=== PATIENT | male | born 1995 | race Caucasian/White ===

== ENCOUNTER 2023-10-17 13:11 | Emergency (ER) | payer OTHER, SELFPAY ==
--- NOTE | ~2023-10-17 | XR_ITS ---
EXAMINATION: XR chest 2V DATE: 10/17/2023 13:49 INDICATION: Chest pain/pressure and dyspnea TECHNIQUE: PA and lateral views of the chest were obtained. COMPARISON: None FINDINGS: The lungs are clear with no focal airspace opacities, pulmonary edema, pleural effusion or pneumothor ax. The cardiomediastinal silhouette is normal. Mild anterior wedging of a couple lower thoracic vert ebral bodies. IMPRESSION: 1. No acute cardiopulmonary disease. Reviewed, dictated and finalized at location A. AP PLACER
--- NOTE | 2023-10-17 13:12 | ECG_ITS ---
Measurements Intervals [place] Rate: 80 P: 16 IA: 143 QRS: 3 QRSD: 87 T: -6 QT: 355 QTc: 412 Interpretive Statements SINUS RHYTHM NO PREVIOUS ECG AVAILABLE FOR COMPARISON Electronically Signed On 10-17-2023 15:04:08 TOP SCREW by Luis Hurley M.D.
[2023-10-17 13:21] VITALS: BP 152/100; PULSE 79; RESP 16; TEMP 36.6; O2SAT 100
[2023-10-17 13:40] LABS: Basophils Percent Auto 0.4 % (0.2-1.2); Eosinophils Absolute Auto 0.1 K/mm3 (0-0.3); Hematocrit 44.7 % (42.0-52.0); Hemoglobin 15.7 g/dL (14.0-18.0); Lymphocytes Absolute Auto 2.98 K/mm3 (0.9-3.2); Lymphocytes Percent Auto 44.1 % (18.3-44.2); Mean Corpuscular HGB Conc 35.1 g/dl (32-36); Mean Corpuscular Hemoglobin 33.3 pg (26-34); Mean Corpuscular Volume 94.7 fl (80-100); Mean Platelet Volume 9.7 fl (7.4-10.4); Monocytes Absolute Auto 0.7 K/mm3 (0.1-0.6); Monocytes Percent Auto 9.6 % (2.6-8.5); Neutrophils Percent Auto 44.9 % (45.5-73.1); Platelet Count Result 223 k/mm3 (150-375); Red Blood Count 4.72 M/mm3 (4.6-6.20); Red Cell Distribution Width 11.3 % (11.5-14.5); White Blood Count 6.8 K/mm3 (4.5-10.0)
[2023-10-17 13:50] LABS: INR 0.9; Partial Thromboplastin Time 26.7 SECONDS (22.3-36.8); Prothrombin Time 12.9 Seconds (11.1-14.7)
[2023-10-17 14:04] LABS: Troponin I < 0.012 ng/mL (0.000-0.034)
[2023-10-17 14:13] LABS: Alanine Aminotransferase 115 U/L (6-50); Albumin Level 4.9 g/dL (3.5-5.1); Alkaline Phosphatase 62 U/L (38-126); Anion Gap 10 mmol/L (8-16); Aspartate Amino Transferase 118 U/L (17-59); Bilirubin,Total 0.7 mg/dL (0.2-1.3); Blood Urea Nitrogen 12 mg/dL (9-20); Calcium 9.7 mg/dL (8.4-10.2); Carbon Dioxide 28 mmol/L (22-30); Chloride 103 mmol/L (98-107); Estimated CRCL calculation 118 ml/min; Estimated Glomerular Filt Rate > 60; Glucose 131 mg/dL (65-110); Lipase 113 U/L (23-300); Potassium 3.8 mmol/L (3.4-5.0); Sodium 141 mmol/L (137-145)
[2023-10-17 16:15] LABS: Influenza A QL RT-PCR Negative (Negative); Influenza B QL RT-PCR Negative (Negative); SARS-CoV-2 RNA PCR Negative (Negative)
--- NOTE | 2023-10-17 16:20 | ECG_ITS ---
Measurements Intervals [place] Rate: 80 P: 44 MI: 144 QRS: 55 QRSD: 89 T: 51 QT: 361 QTc: 417 Interpretive Statements SINUS RHYTHM NORMAL ELECTROCARDIOGRAM COMPARED TO ECG 10/17/2023 13:18:06 NO SIGNIFICANT CHANGES Electronically Signed On 10-18-2023 7:07:20 CALL CENTER SPECIALIST by Kimani Serrano M.D.
[2023-10-17 16:26] VITALS: BP 156/92; PULSE 80; RESP 14; O2SAT 99
[2023-10-17] MEDS: SODIUM CHLORIDE 0.9% IV 1,000 ML 999 ML IV CONT (16:29)
--- NOTE | 2023-10-17 16:56 | ED.CHESTPAIN ---
HPI - Chest Pain General Chief Complaint: Chest Pain Stated Complaint: chest pain Time Seen by Provider: 10/17/23 15:22 History of Present Illness HPI narrative: Patient is a 28-year-old male who presents to the emergency department this afternoon complaining of left-sided chest pain and palpitations. Patient states the symptoms started while he was at work and his boss finally told him to come in for further evaluation. Patient admits that he has been in taking a lot of caffeine and things of this could be attributing to his palpitations. Patient does appear to be anxious and states that initially he did Google his symptoms he and one of the 1st thing that came up was a panic attack. Patient denies any shortness of breath, nausea, vomiting, abdominal pain, dysuria, hematuria, constipation, diarrhea, melena, hematochezia, fevers or chills. Patient also denies any headaches, dizziness, lightheadedness, blurry visions, focal weakness, numbness and or tingling. There are no other modifying, alleviating, or precipitating factors at this time. Related Data Home Medications Medication Instructions Recorded Confirmed No Home Medications 03/13/22 03/13/22 Allergies Allergy/AdvReac Type Severity Reaction Status Date / Time PCN Allergy Intermediate RASH Uncoded 03/02/22 14:19 Review of Systems Review of Systems: All systems are reviewed and are negative unless stated otherwise in the HPI. [facility] Past Medical History Medical History Anxiety Aortic stenosis Family History Family History Mother Hypertension Social History Social History Social History: Single Smoking status: Never smoker Second hand tobacco smoke exposure: No Alcohol intake: current Drinks per week: 24 Substance use: never Substance use type: does not use Living arrangements: alone Occupation/Education: occupation Gender identity (if verbalized by the patient): Male Exam Narrative: General: Alert, awake, afebrile, in no acute distress, anxious. HEENT: PERRL, no rhinorrhea, no post nasal drip, oropharynx clear. Neck: Trachea midline, no JVD, no lymphadenopathy. Cardiovascular: Regular rate and rhythm, no murmurs, rubs or gallops, no peripheral edema. Respiratory: Clear to auscultation bilaterally, no tachypnea, no wheezing, no rhonchi, no rubs, no respiratory distress. Abdomen: Soft, nontender, nondistended, no rebound, no guarding, no peritoneal signs. Musculoskeletal: No joint swelling or deformity, normal muscle tone. Skin: No rashes or petechia, no signs of infection. Psychiatric: Alert and oriented, normal behavior and judgment for situation. Neurological: Alert and oriented to person, place, and time. Follows all commands. No focal deficits, speech is clear and fluent. Course Vital Signs Vital signs: Vital Signs Temperature 97.8 F 10/17/23 13:21 Pulse Rate 79 10/17/23 13:21 Respiratory Rate 16 10/17/23 13:21 Blood Pressure 152/100 H 10/17/23 13:21 Pulse Oximetry 100 10/17/23 13:21 Oxygen Delivery Room Air 10/17/23 13:21 Temperature 97.8 F 10/17/23 13:21 Pulse Rate 80 10/17/23 16:26 Respiratory Rate 14 10/17/23 16:26 Blood Pressure 156/92 H 10/17/23 16:26 Pulse Oximetry 99 10/17/23 16:26 Oxygen Delivery Room Air 10/17/23 13:21 MDM - Chest Pain MDM Narrative Medical decision making narrative: The patient was evaluated by myself in the emergency department. History is obtained from patient who is an independent historian and physical exam was performed. External medical records were reviewed at this time. IV was established and pertinent tests were ordered. Patient was administered a 1 L fluid bolus with normal saline. EKG was obtained which revealed sinus rhythm at a rate of 80 beats per minute.
[2023-10-17 16:57] LABS: Troponin I < 0.012 ng/mL (0.000-0.034)
== END 2023-10-17 17:53 | disposition home or self-care (01) ==
PROVIDERS: Student in an Organized Health Care Education/Training Program; Emergency Provider Emergency Medicine; PCP Emergency Medicine
DX: R07.9 Chest pain, unspecified (principal); R00.2 Palpitations; F41.9 Anxiety disorder, unspecified; Z20.822 Contact with and (suspected) exposure to COVID-19; I35.0 Nonrheumatic aortic (valve) stenosis
CPT/HCPCS: 36415; 71046; 80053; 83690; 84484; 85025; 85610; 85730; 87636; 93005; 96360; 99284; J7030

== ENCOUNTER 2023-10-30 08:18 | Outpatient (CLI) | payer OTHER, SELFPAY ==
--- NOTE | ~2023-10-30 | US_ITS ---
EXAMINATION: US abdomen complete DATE: 10/30/2023 08:55 INDICATION: Hepatic steatosis, elevated liver function tests TECHNIQUE: Multiple grayscale and Doppler ultrasound images of the abdomen were obtained. COMPARISON: None available FINDINGS: Bowel gas obscures visualization of the pancreas. The visualized portions of the pancreas a re unremarkable. The liver demonstrates increased echogenicity, heterogenous echotexture, and decreas ed through transmission. There is an approximately 6.0 x 4.8 x 5.5 cm hypoechoic area of the the left hepatic lobe. No surface nodularity. Normal hepatopetal flow in the main portal vein. The gallbladde r is normal with no abnormal wall thickening, pericholecystic fluid or stones. The normal common bile duct measures 4 mm. There was no sonographic Segovia sign. The visualized portions of the aorta and i nferior vena cava are normal. The spleen is normal in appearance and measures 11.6 cm. The right kidney measures 10.8 x 4.5 x 5.2 c m. The left kidney measures 11.0 x 5.8 x 5.3 cm. The kidneys demonstrate normal parenchymal echogenic ity. There is no hydronephrosis. IMPRESSION: 1. Diffuse hepatic steatosis. 2. 6.0 cm hypoechoic area of the left hepatic lobe which could reflect focal fatty sparing or liver m ass. Further evaluation by MRI without and with contrast is recommended. Reviewed, dictated and finalized at location B. REGULATORY AFFAIRS SPECIALIST IMPRESSION: 1. Diffuse hepatic steatosis. 2. 6.0 cm hypoechoic area of the left hepatic lobe which could reflect focal fa tty sparing or liver mass. Further evaluation by MRI without and with contrast is recommended.
== END 2023-10-30 08:19 ==
PROVIDERS: PCP Emergency Medicine; Visit Provider Emergency Medicine
DX: K76.0 Fatty (change of) liver, not elsewhere classified (principal); R94.5 Abnormal results of liver function studies
CPT/HCPCS: 76700

== ENCOUNTER 2023-11-18 12:31 | Outpatient (CLI) | payer OTHER, SELFPAY ==
--- NOTE | ~2023-11-18 | MR_ITS ---
EXAMINATION: MR abdomen wo/w con DATE: 11/18/2023 13:40 INDICATION: Liver mass TECHNIQUE: Magnetic resonance imaging (MRI) of the abdomen was performed without and with 19 mL Multi jaskaran intravenous contrast. Sequences included coronal T2-weighted SS-FSE, coronal and axial FS 2D-F IESTA, axial STIR FSE, axial T2-weighted SS-FSE, axial T2-weighted FS SS-FSE, axial diffusion-weighte d SE, axial dual-echo T1-weighted FSPGR, and axial and coronal T1-weighted LAVA. Postcontrast axial T 1-weighted LAVA images were obtained in a time course. Postcontrast coronal T1-weighted LAVA images w ere obtained. COMPARISON: Ultrasound dated 10/30/2023 FINDINGS: Heart size is normal. No pericardial or pleural effusion. There is diffuse hepatic steatosis with pro minent signal dropout on opposed phase imaging. There is a an approximately 5 cm geographic region of focal fatty sparing at the posterior aspect of the lateral segment of the left hepatic lobe. No othe r hepatic lesions identified. Gallbladder, spleen, pancreas, bilateral adrenal glands and kidneys are normal. Visualized portion of the bowels are unremarkable with no obstruction. No pathologically enl arged abdominal or upper pelvic lymphadenopathy. Bones are unremarkable with normal marrow signal thr oughout. IMPRESSION: 1. Diffuse hepatic steatosis with 5 cm region of focal fatty sparing at the lateral segment of the le ft hepatic lobe which corresponds to the region of decreased echogenicity on the prior ultrasound. Reviewed, dictated and finalized at location B. IMPRESSION: 1. Diffuse hepatic steatosis with 5 cm region of focal fatty sparing at the lat eral segment of the left hepatic lobe which corresponds to the region of decrea sed echogenicity on the prior ultrasound.
== END 2023-11-18 12:32 | disposition home or self-care (01) ==
LOC: ANHIMG 12:36
PROVIDERS: PCP Emergency Medicine; Visit Provider Emergency Medicine
DX: K76.0 Fatty (change of) liver, not elsewhere classified (principal)
CPT/HCPCS: 74183; A9577

== ENCOUNTER 2024-07-07 10:47 | Outpatient (CLI) | payer BC, SELFPAY ==
--- NOTE | 2024-07-07 10:49 | ECHO_ITS ---
Patient Info Name: Gino Ham Age: 29 years : 1995 Gender: Male Ht: 68 in Wt: 205 lbs BSA: 2.14 m2 HR: 82 bpm BP: 154 / 96 mmHg Technical Quality: Good Exam Date: 07/07/2024 11:29 AM Exam Location: Echo Lab Patient Status: Outpatient Admit Date: 07/07/2024 Staff Ordering Physician: Edgar Munoz DO Brick Cleaner: Neda Marin RDCS Attending Provider: Edgar Munoz DO Referring Physician: Alexander FAIR; Exam Type: CA echo doppler color flow Study Info Indications I35.0 - Nonrheumatic aortic (valve) stenosis Complete two-dimensional, color flow and Doppler transthoracic echocardiogram is performed. Strain analysis performed. Summary 1. Complete two-dimensional, color flow and Doppler transthoracic echocardiogram is performed. 2. Left ventricular chamber dimension is normal. 3. Left ventricular systolic function is normal, estimated at 60-65%. 4. The left ventricular diastolic function is normal. 5. E/e' 8 is minimally elevated. 6. Global longitudinal strain is mildly abnormal at -16.3%. 7. There is mild aortic valve sclerosis. 8. There is trace tricuspid valve regurgitation. 9. No pulmonary hypertension, estimated pulmonary arterial systolic pressure is 36 mmHg. 10. There is trace pulmonic regurgitation. Left Ventricle E/e' 8 is minimally elevated. Global longitudinal strain is mildly abnormal at -16.3%. Left ventricular chamber dimension is normal. Left ventricular systolic function is normal, estimated at 60-65%. The left ventricular diastolic function is normal. Right Ventricle Right ventricular chamber dimension is normal. Right ventricular systolic function is normal. Left Atria Left atrial chamber dimension is normal. Right Atria Right atrial chamber dimension is normal. Aortic Valve The aortic valve is trileaflet. There is mild aortic valve sclerosis. There is no aortic valve stenosis. There is no aortic valve regurgitation. Pulmonic Valve There is trace pulmonic regurgitation. Mitral Valve There is no mitral valve stenosis. There is no mitral valve regurgitation. Tricuspid Valve There is trace tricuspid valve regurgitation. No pulmonary hypertension, estimated pulmonary arterial systolic pressure is 36 mmHg. Pericardium/Pleural There is no pericardial effusion. Inferior Vena Cava Normal inferior vena cava with >50% collapse upon inspiration consistent with normal right atrial pressure, 5 mmHg. Aorta The aortic root size at the sinus of Valsalva is normal. Left Ventricular Outflow Tract Name Value Normal LVOT 2D LVOT Diameter 2.1 cm LVOT Doppler LVOT Peak Gradient 4 mmHg LVOT Mean Gradient 2 mmHg LVOT VTI 23 cm LVOT VTI/AV VTI Ratio 0.4 LVOT Stroke Volume 80 ml LVOT CO 5.2 l/min LVOT CI 2.4 l/min/m2 Pulmonic Valve Name Value Normal RVOT Doppler RVOT Peak Gradient 2 mmHg PV Doppler PV Peak Gradient 7 mmHg Mitral Valve Name Value Normal MV Doppler MV Decel [place] 461 cm/s2 MV PHT 46 ms MV Area (PHT) 4.8 cm2 4.0-5.0 MV Diastolic Function MV E Peak Velocity 73 cm/s MV A Peak Velocity 71 cm/s MV E/A 1.0 MV Decel Time 158 ms Tricuspid Valve Name Value Normal TV Regurgitation Doppler TR Peak Velocity 278 cm/s TR Peak Gradient 31 mmHg Estimated PAP/RSVP RA Pressure 5 mmHg <=5 PA Systolic Pressure 36 mmHg <36 RV Systolic Pressure 36 mmHg <36 Aorta Name Value Normal Ascending Aorta Ao Root Diameter (MM) 3.7 cm Ao Root Diam Index (MM) 1.7 cm/m2 Aortic Valve Name Value Normal AV Doppler AV Peak Velocity 310 cm/s AV Peak Gradient 36 mmHg AV Mean Gradient 21 mmHg AV VTI 60 cm AV Area (Cont Eq VTI) 1.3 cm2 >=3.0 AV Area (Cont Eq Adam) 1.1 cm2 AV Regurgitation 2D LVOT Area 3.5 cm2 Ventricles Name Value Normal LV Dimensions 2D/MM IVS Diastolic Thickness (2D) 0.7 cm 0.6-1.0 IVS Diastole Thickness (MM) 0.9 cm 0.6-1.0 LVID Diastole (2D) 4.3 cm 4.2-5.8 LVID Diastole (MM) 5.1 cm 4.2-5.8 LVIW Diastolic Thickness (2D) 1.0 cm 0.6-1.0 LVIW Diastolic Thickness (MM) 0.9 cm 0.6-1.0 LVID Systole (2D) 2.8 cm 2.5-4.0 LVID Systole (MM) 3.3 cm 2.5-4.0 LVOT Diameter 2.1 cm LV Mass (2D Cubed) 106.76 g 88.00-224.00 LV Mass Index (2D Cubed) 50 g/m2 49-115 Relative Wall Thickness (2D) 0.44 LV Mass (MM Cubed) 163.82 g 88.00-224.00 LV Mass Index (MM Cubed) 77 g/m2 49-115 Relative Wall Thickness (MM) 0.36 LV Fractional Shortening/Ejection Fraction 2D/MM LV Fractional Shortening (2D) 35 % 25-43 LV Fractional Shortening (MM) 35 % 25-43 LV EF (MM Teicholz) 64 % 52-72 LV EF (2D Teicholz) 65 % 52-72 LV Diastolic Volume (4C MOD) 112 ml LV EF (4C MOD) 48 % LV Diastolic Volume (2C MOD) 136 ml LV EF (2C MOD) 63 % LV Diastolic Volume (BP MOD) 124 ml 62-150 LV Diastolic Volume Index (BP MOD) 58 ml/m2 34-74 LV Systolic Volume (BP MOD) 56 ml 21-61 LV Systolic Volume Index (BP MOD) 26 ml/m2 11-31 LV EF (BP MOD) 55 % 52-72 LV Diastolic Length (4C) 8.9 cm LV Systolic Length (4C) 7.9 cm LV Stroke Volume (4C MOD) 53 ml Atria Name Value Normal LA Dimensions LA Dimension (MM) 3.0 cm 3.0-4.1 LA Volume (4C A-L) 31 ml LA Volume (BP A-L) 38 ml RA Dimensions RA Area (4C) 13.7 cm2 <=18.0 EchoPAC Name Value Normal AutoEF LVCO_BiP_Q (Rtuc1XMH) 5.2 l/min LVEF_BiP_Q (Zjhe0UHG) 55 % LVSV_BiP_Q (Rgoz8CIN) 64 ml LVVED_BiP_Q (Ckky0JWR) 116 ml LVVES_BiP_Q (Hgat7RQT) 52 ml HR_4Ch_Q (Mgiy6PCL) 79 bpm LVCO_4Ch_Q (Gkgd8LFX) 3.8 l/min LVEF_4Ch_Q (Nyuv5QFL) 46 % LVLd_4Ch_Q (Iccn2FJM) 8.8 cm LVLs_4Ch_Q (Tzqu2HOR) 7.5 cm LVSV_4Ch_Q (Ivde2SPC) 49 ml LVVED_4Ch_Q (Yvks2ACW) 107 ml LVVES_4Ch_Q (Vjhv2KJL) 58 ml HR_2Ch_Q (Nkvt8NUP) 81 bpm LVCO_2Ch_Q (Cyhq0YFM) 6.6 l/min LVEF_2Ch_Q (Pfcb5OAJ) 64 % LVLd_2Ch_Q (Ofak8QMO) 8.9 cm LVLs_2Ch_Q (Ytru2HPV) 7.1 cm LVSV_2Ch_Q (Mxih1ABQ) 81 ml LVVED_2Ch_Q (Dbub1WEL) 127 ml LVVES_2Ch_Q (Szgy3UMR) 46 ml DMITRY AA peak sys SL (AWMA) 15.5 % AAS peak sys SL (AWMA) 20.6 % AI peak sys SL (AWMA) 25.6 % AL peak sys SL (AWMA) 13.2 % AP peak sys SL (AWMA) 20.6 % peak sys SL (AWMA) 19.8 % AVC (AWMA) 356 ms BA peak sys SL (AWMA) 19.3 % BAS peak sys SL (AWMA) 15.0 % BI peak sys SL (AWMA) 21.9 % BL peak sys SL (AWMA) 15.4 % BP peak sys SL (AWMA) 11.4 % BS peak sys SL (AWMA) 10.4 % G peak SL(A2C) (AWMA) 19.4 % G peak SL(A4C) (AWMA) 15.0 % G peak SL(APLAX) (AWMA) 14.8 % G peak SL(Avg) (AWMA) 16.4 % MA peak sys SL (AWMA) 14.9 % MAS peak sys SL (AWMA) 17.4 % WA peak sys SL (AWMA) 23.2 % ML peak sys SL (AWMA) 16.4 % MP peak sys SL (AWMA) 16.5 % MS peak sys SL (AWMA) 19.0 % Report Signatures
--- NOTE | 2024-07-07 10:49 | EST_ITS ---
Patient Info Name: Gino Ham Age: 29 years : 1995 Gender: Male Ht: 68 in Wt: 205 lbs BSA: 2.14 m2 HR: 69 bpm BP: 132 / 81 mmHg Exam Date: 07/07/2024 10:57 AM Exam Location: Echo Lab Patient Status: Outpatient Admit Date: 07/07/2024 Staff Ordering Physician: Edgar Munoz DO Attending Provider: Edgar Munoz DO Exercise Technologist: Chelsie Ho RDCS Exercise Physician: Edgar Munoz DO Exam Type: CA stress test treadmill Study Info A treadmill exercise stress test was performed. Summary 1. 1. Negative Rickey exercise stress test for ischemic ST changes by ECG criteria. 2. 2. Good functional capacity, achieving 12 METs of workload. 3. 3. Appropriate HR response to exercise. 4. 4. Appropriate HR recovery at 1 minute post exercise. 5. 5. No imaging with stress testing. 6. 6. Patient informed of the above results. Protocol: Rickey Stress ECG Details Stage: REST Duration (min): 5 min : 45 sec Speed (mph): 0.0 Grade (%): 0 HR (bpm): 71 SBP (mmHg): 132 DBP (mmHg): 81 METS: --- Stage: REST Duration (min): 10 min : 40 sec Speed (mph): 0.0 Grade (%): 0 HR (bpm): 90 SBP (mmHg): 132 DBP (mmHg): 81 METS: --- Stage: STAGE 1 Duration (min): 1 min : 0 sec Speed (mph): 1.7 Grade (%): 10 HR (bpm): 100 SBP (mmHg): 132 DBP (mmHg): 81 METS: --- Stage: STAGE 1 Duration (min): 2 min : 0 sec Speed (mph): 1.7 Grade (%): 10 HR (bpm): 102 SBP (mmHg): 132 DBP (mmHg): 81 METS: --- Stage: STAGE 1 Duration (min): 3 min : 0 sec Speed (mph): 1.7 Grade (%): 10 HR (bpm): 103 SBP (mmHg): 132 DBP (mmHg): 81 METS: --- Stage: STAGE 2 Duration (min): 1 min : 0 sec Speed (mph): 2.5 Grade (%): 12 HR (bpm): 113 SBP (mmHg): 132 DBP (mmHg): 81 METS: --- Stage: STAGE 2 Duration (min): 2 min : 0 sec Speed (mph): 2.5 Grade (%): 12 HR (bpm): 119 SBP (mmHg): 132 DBP (mmHg): 81 METS: --- Stage: STAGE 2 Duration (min): 3 min : 0 sec Speed (mph): 2.5 Grade (%): 12 HR (bpm): 118 SBP (mmHg): 136 DBP (mmHg): 73 METS: --- Stage: STAGE 3 Duration (min): 1 min : 0 sec Speed (mph): 3.4 Grade (%): 14 HR (bpm): 131 SBP (mmHg): 174 DBP (mmHg): 86 METS: --- Stage: STAGE 3 Duration (min): 2 min : 0 sec Speed (mph): 3.4 Grade (%): 14 HR (bpm): 136 SBP (mmHg): 174 DBP (mmHg): 86 METS: --- Stage: STAGE 3 Duration (min): 3 min : 0 sec Speed (mph): 3.4 Grade (%): 14 HR (bpm): 136 SBP (mmHg): 168 DBP (mmHg): 113 METS: --- Stage: STAGE 4 Duration (min): 1 min : 0 sec Speed (mph): 4.2 Grade (%): 16 HR (bpm): 167 SBP (mmHg): 168 DBP (mmHg): 113 METS: --- Stage: STAGE 4 Duration (min): 2 min : 0 sec Speed (mph): 4.2 Grade (%): 16 HR (bpm): 178 SBP (mmHg): 190 DBP (mmHg): 98 METS: --- Stage: STAGE 4 Duration (min): 2 min : 1 sec Speed (mph): 4.2 Grade (%): 16 HR (bpm): 178 SBP (mmHg): 190 DBP (mmHg): 98 METS: --- Stage: RECOVERY Duration (min): 0 min : 59 sec Speed (mph): 0.0 Grade (%): 0 HR (bpm): 149 SBP (mmHg): 190 DBP (mmHg): 98 METS: --- Stage: RECOVERY Duration (min): 1 min : 59 sec Speed (mph): 0.0 Grade (%): 0 HR (bpm): 117 SBP (mmHg): 190 DBP (mmHg): 98 METS: --- Stage: RECOVERY Duration (min): 2 min : 58 sec Speed (mph): 0.0 Grade (%): 0 HR (bpm): 100 SBP (mmHg): 156 DBP (mmHg): 90 METS: --- Stage: RECOVERY Duration (min): 3 min : 4 sec Speed (mph): 0.0 Grade (%): 0 HR (bpm): 100 SBP (mmHg): 156 DBP (mmHg): 90 METS: --- Rest HR: 90 bpm Peak HR: 178 bpm Rest Sys BP: 132 mmHg Peak Sys BP: 190 mmHg Max Pred HR: 190 bpm % Max Pred HR: 94 % Target HR: 162 bpm Max RPP: 33,820 bpm*mmHg Snell Score: 5 Termination Reason: Reached target heart rate or workload Cardiac Symptoms: Shortness of breath Max ST Seg Deviation: 1.20 mm Total Time: 11 min : 1 sec Rest Weaver BP: 81 mmHg Peak Weaver BP: 98 mmHg Angina Score: None Total METS: 12.1 Resting ECG Sinus rhythm. Stress ECG No ST changes. Arrhythmias None. Report Signatures
== END 2024-07-07 10:48 | disposition home or self-care (01) ==
PROVIDERS: PCP Emergency Medicine; Visit Provider Internal Medicine Cardiovascular Disease
DX: I35.8 Other nonrheumatic aortic valve disorders (principal); R07.9 Chest pain, unspecified
CPT/HCPCS: 93017; 93306